=== PATIENT | male | born 1995 | race Caucasian/White ===

== ENCOUNTER → 2018-01-17 16:11 | Outpatient (CLI) | payer MEDICAID, SELFPAY ==
--- NOTE | 2018-01-17 15:59 | DI.REPORT_ITS ---
SYMPTOM/DIAGNOSIS: RT KNEE PAIN, S/P FALL. M25.561 RIGHT KNEE: Comparison is made with 01 Apr 2012. The joint spaces are well maintained. No fracture or joint effusion is seen. IMPRESSION: Negative right knee.
== END ==
PROVIDERS: PCP Family Medicine; Visit Provider Nurse Practitioner Family
DX: M25.561 Pain in right knee (principal)
CPT/HCPCS: 73562

== ENCOUNTER → 2018-01-23 01:05 | Outpatient (CLI) | payer MEDICAID, SELFPAY ==
--- NOTE | 2018-01-23 10:58 | DI.REPORT_ITS ---
SYMPTOMS/DIAGNOSIS: RT KNEE PAIN, S/P FALL, UNABLE TO AMBULATE, ? LIGAMENT OR MENISCUS TEAR, ACUTE PAIN, M25.561 RIGHT KNEE MRI: MRI examination of the knee was performed according to the usual protocol. There are subtle areas of abnormal signal most clearly seen on sagittal proton density imaging in the subchondral portions of the left patella and femur adjacent to the patellofemoral joint raising the possibility of bony trabecular injury. Question abnormal signal seen in subchondral bone in medial tibial plateau as well could also represent minimal bony trabecular injury seen on PD imaging but not confirmed on T 2 fat sat imaging. There is some abnormal signal in the medial meniscus body and posterior horn without a discrete surfacing tear. The lateral meniscus appears intact. The cruciate ligaments appear intact. No significant collateral ligament injury seen. CONCLUSION: Findings suggesting bony trabecular injuries of the patella and femur at the patellofemoral joint. No internal derangement seen.
== END ==
PROVIDERS: PCP Family Medicine; Visit Provider Nurse Practitioner Family
DX: M25.551 Pain in right hip (principal); M25.561 Pain in right knee; S89.81XA Other specified injuries of right lower leg, initial encounter
CPT/HCPCS: 73721; 73502

== ENCOUNTER → 2018-01-23 10:02 | Outpatient (CLI) | payer MEDICAID, SELFPAY ==
--- NOTE | 2018-01-23 09:57 | DI.REPORT_ITS ---
SYMPTOM/DIAGNOSIS: PAIN RIGHT HIP : 01/23 Two views were obtained. No bony or soft tissue abnormality seen.
== END ==
PROVIDERS: PCP Family Medicine; Visit Provider Orthopaedic Surgery
DX: M25.551 Pain in right hip (principal)
CPT/HCPCS: 73502

== ENCOUNTER 2018-03-10 07:56 | Outpatient (CLI) | payer MEDICAID, SELFPAY ==
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
== END 2018-03-10 08:16 ==
PROVIDERS: PCP Family Medicine; Visit Provider Orthopaedic Surgery
DX: M25.561 Pain in right knee (principal); M23.91 Unspecified internal derangement of right knee; Z01.818 Encounter for other preprocedural examination
CPT/HCPCS: NC

== ENCOUNTER 2018-03-12 11:05 | Day surgery (SDC) | payer MEDICAID, SELFPAY ==
[2018-03-12] VITALS (9 sets, daily range): BP systolic 120–137; BP diastolic 58–88; PULSE 63–77; RESP 11–20; TEMP 36.5–36.9; O2SAT 97–100
[2018-03-12] MEDS: Lactated Ringers 1,000 ML 80 ML IV ×3 (12:25→14:58)
--- NOTE | 2018-03-12 14:20 | PDOC.DSDIS_ITS ---
Discharge Plan Disposition Patient Disposition: HOME Condition: Good Discharge Details Reason For Visit: INTERNAL DERANGEMENT (R) KNEE Attending Provider: Arnulfo Mendez Primary Care Provider: Manuel Isaac Home Meds and New Rx's Prescriptions: New ibuprofen [IBU] 800 mg tablet 800 mg PO TID Qty: 60 RF: 0 oxycodone-acetaminophen [Percocet] 5-325 mg tablet 1 tab PO Q6H PRN (Reason: pain) Qty: 20 RF: 0 Discontinued ibuprofen 800 mg tablet 800 mg PO QID PRNRF: 0 tramadol 50 mg tablet 50 mg PO BID PRNRF: 0 Discharge Instructions Additional Instructions: Elevate R knee on 1-2 pillows as much as possible for next 48 hours. Crutches to walk. Put as much weight on R foot as your discomfort allows. Discontinue crutches when you can step fully on R foot with minimal pain and limp. Apply cryocuff to R knee 4 times/day for 1 hour each time. May remove dressings, shower, and get incisions wet after 48 hours. Leave incisions uncovered when they are dry and sealed. Outpatient physical therapy on Saturday or Sat for rehab R knee post arthroscopic limited synovectomy. Ibuprofen 3 times/day for swelling and inflammation. Take oxycodone for breakthrough pain every 6 hours, if needed. Follow up in 's office in 2 weeks. Referrals: Arnulfo Mendez MD [ [facility] STAFF PHYSICIAN] - (Follow up in 2 weeks.) Gerson Douglas, PT [PHYSICAL THERAPIST] - (start 03/14/18 or 03/17/18 for rehab R knee post-arthroscopic limited synovectomy.) Equipment/Supplies: Partial Weight Bearing Crutches Activity:: Activity as Tolerated Remove Dressings/Wound Care:: 48 hours Shower/Bathe:: 48 hours Diet:: As Tolerated Discharge Orders Discharge Orders: Discharge Order (Routine); Ordered 03/12/18 Ordered By: Arnulfo Mendez DS: Diagnosis Discharge Diagnosis (1) Internal derangement of knee: Start date: 03/12/18 Start time: 14:19 Status: Deleted (2) Internal derangement of right knee: Start date: 03/12/18 Start time: 14:19 Status: Acute
[2018-03-12] MEDS: fentaNYL 100 MCG/2 ML VIAL IVP ×2 (14:28→14:35)
[2018-03-12] MEDS: Normal Saline Flush 10 ML SYR IV (14:53)
[2018-03-12] MEDS: HYDROmorphone 2 MG/ML VIAL IVP ×3 (14:53→15:14)
[2018-03-12] MEDS: oxyCODONE-CR 10 MG TABCR PO (15:46)
[2018-03-12] MEDS: Acetaminophen 325 MG TAB 650 MG PO (15:46)
--- NOTE | 2018-03-14 09:28 | ROE_ITS ---
REPORT OF OPERATIVE PROCEDURE DATE OF PROCEDURE March 12, 2018 PREOPERATIVE DIAGNOSIS Internal derangement right knee. POSTOPERATIVE DIAGNOSES Internal derangement right knee due to medial patellar plica and chondromalacia patella. PROCEDURE Arthroscopy right knee with limited synovectomy (resection of plica) and limited chondroplasty theresa mesa ANESTHESIA General. SURGEON Arnulfo Mendez M.D. INDICATIONS This is a 22-year-old white male with continued pain and intermittent swelling of his right knee. He has had no major trauma to this knee. He has not responded to conservative treatment. MRI scan was ob tained, which was nondiagnostic. Because of persistence of symptoms that interfere with his work acti vities, and just walking, I felt that arthroscopy was indicated. This would hopefully provide a diagn osis and direct further treatment. The patient wished to have the procedure as soon as possible. The risks and complications of the procedure were explained to the patient in detail preop. PROCEDURE The patient was taken to the Operating Room on 03/12/2018. He was placed supine on the operating tab le and a general anesthetic was administered. The right thigh was placed in the arthroscopic leg hol karlie. The right knee was prepped and draped free in the usual sterile fashion. Arthroscopic portals were established. The right knee was inflated with normal saline solution using the arthroscopy pump and then routine arthroscopic examination proceeded. Intraoperative photographs were obtained to do cument the findings. Upon entering the medial compartment, he was found to have an intact medial meniscus. The medial meni scus was probed under direct vision and was fully stable. No occult tears were identified. The articu lar surface and the medial compartment was undamaged. The intercondylar notch showed intact anterior and posterior cruciate ligaments without injury. The lateral compartment showed normal lateral meniscus. The lateral meniscus was probed under direct vision and was fully stable. The popliteus tendon was visualized and was undamaged. The articular car tilage in the lateral compartment was undamaged and pristine. The lateral gutter was clear. The hawkins lofemoral joints with normal patellar tracking, but there were a couple of areas of grade 2 chondroma lacia and maybe even grade 3, one over the medial facet and one area over the lateral facet. Loose ar ticular cartilage was debrided using the 90-degree high radiofrequency electrocautery wand. The medial gutter could not be visualized very well because of a prominent medial patellar plica with overlying synovitis. The plica was excised using the 90-degree ArthroCare wand restoring the restori ng the full volume in the medial gutter with no impingement on the medial femoral condyle. At this po int, the knee was copiously irrigated with saline solution until the outflow was clear. All instruments were removed the knee. I instilled into the knee 20 cc of 0.5% Marcaine with epinephr ine solution, along with 4 mg of morphine for postoperative analgesia. The arthroscopy portals were i nfiltrated with 0.5% Marcaine with epinephrine solution and were approximated with interrupted 4-0 Ny victor manuel sutures. Sterile dressings were applied, followed by light compressive dressing to the right knee . The patient's anesthesia was reversed without complications. Blood loss was minimal and the patien t was discharged to Recovery Room in good condition. The patient was discharged home from the Day Surgery Unit when fully recovered from his general anest hesia. He was given instructions to try to elevate his right knee on 2 to 3 pillows as much as possib le for the next 48 hours. He is to keep his dressing clean and dry for 48 hours. After 48 hours, he may remove his dressing, shower and get his incisions wet. He is to use crutches to walk, weightbeari ng as tolerated to the right leg. He may discontinue the crutches when he can step fully on his right leg with minimal pain. Again, he may remove his dressings, shower and get his incisions wet after 48 hours. He is given a prescription for inflammation of ibuprofen 800 mg p.o. t.i.d. and a prescription for br eakthrough pain of Percocet 5/325 1 tablet every 6 hours as needed. He will begin outpatient physical therapy on either 03/14 or 03/17/18 for rehab of his right knee post arthroscopy with limited synove ctomy. He will followup in my office in two weeks.
== END 2018-03-12 16:38 | disposition home or self-care (01) ==
PROVIDERS: PCP Family Medicine; Visit Provider Orthopaedic Surgery
PROC: (CPT 29870; principal; 2018-03-12 13:00)
DX: M67.51 Plica syndrome, right knee (principal); M22.41 Chondromalacia patellae, right knee; M23.91 Unspecified internal derangement of right knee
CPT/HCPCS: 29877; E0114; J0690; J1885; J2250; J2405; J3010

== ENCOUNTER 2019-02-12 07:22 | Emergency (ER) | payer OTHER, MEDICAID, SELFPAY ==
[2019-02-12 07:26] VITALS: BP 151/82; PULSE 84; RESP 16; TEMP 36.5; O2SAT 98
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
[2019-02-12 08:51] VITALS: BP 124/77; PULSE 69; RESP 15; TEMP 37.1; O2SAT 99
[2019-02-12 09:43] VITALS: BP 124/77; PULSE 69; RESP 15; TEMP 37.1; O2SAT 99
== END 2019-02-12 09:22 | disposition short-term general hospital (02) ==
PROVIDERS: Emergency Provider Physician Assistant; PCP Family Medicine
DX: S05.91XA Unspecified injury of right eye and orbit, initial encounter (principal); W31.1XXA Contact with metalworking machines, initial encounter
CPT/HCPCS: 99285; 99284

== ENCOUNTER 2020-11-04 14:08 | Outpatient (CLI) | payer MEDICAID, SELFPAY ==
--- NOTE | 2020-11-04 08:45 | DI.RAD_ITS ---
Exam(s) XR CERVICAL SPINE COMP 4-5V EXAM: XR CERVICAL SPINE COMP 4-5V CLINICAL HISTORY: neck pain x 1yr with stiffness M54.2 CERVICALGIA TECHNIQUE: COMPARISON: No exams were available for comparison FINDINGS: Five views were obtained. The intervertebral disc spaces are well maintained. Alignment appears wit hin normal limits. Bones appear intact. There is plate and screw fixation of an old right clavicula r fracture. Oblique views show unremarkable appearance of the neural foramina. IMPRESSION: Negative radiographic examination of the cervical spine. RADIATION DOSE DELIVERED: Total DLP
== END 2020-11-04 14:28 ==
PROVIDERS: PCP Family Medicine; Visit Provider Nurse Practitioner Family
DX: M54.2 Cervicalgia (principal)
CPT/HCPCS: 72050

== ENCOUNTER 2020-11-10 05:51 | Emergency (ER) | payer MEDICAID, SELFPAY ==
[2020-11-10 05:55] VITALS: BP 132/93; PULSE 107; RESP 18; TEMP 36.6; O2SAT 97
--- NOTE | 2020-11-10 06:08 | W.ED.GENAD ---
Discharge Plan Disposition Patient Disposition: HOME Condition: Improving Discharge Details Clinical Impression: Cephalalgia Primary Care Provider: Maunel Isaac ED Provider: Arnulfo Roberson Home Meds and New Rx's Prescriptions: Continued lidocaine 4 % adhesive patch,medicated 1 patch topical DAILY PRN (Reason: pain) Qty: 30 RF: 1 cyclobenzaprine 10 mg tablet 10 mg PO HS PRN (Reason: muscle spasm) Qty: 90 RF: 1 sumatriptan succinate 50 mg tablet 50 mg PO Q2H PRN (Reason: migraine headache) Qty: 60 RF: 0 Discharge Instructions Instructions: General Headache (ED) Additional Instructions: Home to rest today. Continue to hydrate with small, frequent sips of fluids. You will benefit from sleeping in a dark, quiet room. May use Tylenol if needed for pain. Continue your prescribed medications. Return if you develop a fever, recurrent headache, or any other acute concerns. Stand Alone Forms: Work Release Medical Decision Making <Sami Pace DO - Last Filed: 11/10/20 07:43> This is a 25-year-old male with a past medical history of previous right eye injury, ADHD, tonsillectomy and adenoidectomy, family history of migraines, who presents today for headache. Patient states that the first time he ever had a headache was when he had a drill bit lodged in his right eye. That was 2 years ago. Since then he has occasional intermittent very mild headaches, however this past week he has developed a notable headache. Patient states that about a week ago he had a mild onset of a headache which she describes as a pressure-like sensation in his head. This is increased over the last week in severity and now described as severe pressure in his head that radiates to the right eye and then down his neck and back. He is sweaty throughout the day. Yesterday he states that he had a fever of 100.0, but otherwise had not had any fever. He has been notably sweaty over the last 3 days. He denies any falls or trauma. He did have an episode of notable lightheadedness yesterday and normal is passed out. He denies any chest pain, tearing or ripping sensation in his chest, chest heaviness, pleuritic chest pain, numbness or weakness. He does admit to intermittent tingling in his middle finger on his right hand. He denies any new medications. He did take NSAIDs as well as sumatriptan, neither of which helped his headache. The patient denies any headache red flags of worst headache of life, thunderclap headache, concerning family history of polycystic kidney disease, Marfan syndrome, Nicolas-Danlos syndrome, abdominal aortic aneurysm, aortic dissection, or intracranial aneurysm. Patient denies any saddle anesthesia, numbness or tingling in the groin, change in sensation when wiping. Patient denies any change in sexual function, bowel or bladder incontinence, leakage, or retention. Patient denies any weakness in the lower extremities, atypical falls or imbalance. No other complaints this time. He denies any IV or illicit drug use. Physical exam demonstrates no focal neurologic deficits. The patient is diffusely sweaty. He does have mild neck pain, but notable spasm throughout the cervical thoracic and lumbar spine. No midline tenderness. David-Pen reveals normal ocular pressure bilaterally. No pupillary defect. Differential is broad, mother is at bedside and states that this is similar to her headache/migraines. This may certainly be a migraine headache I do feel that the differential is broad at the neck, we will get a CT scan of the head as well as a CTA of the head neck to rule out aneurysm. Symptoms appear somewhat inconsistent with aneurysmal bleed, may also appear somewhat inconsistent with meningitis as he has had it for the last week, he is afebrile here, his symptoms seem to be more global. However these things are certainly of concern. We will start with a CT scan and give a migraine cocktail, then dependent upon repeat clinical assessment may require lumbar puncture. Will monitor closely and reassess. 7:[address] results, laboratory work-up is returned reassuring however CRP is high. On reassessment just now the patient looks markedly improved. His headache is gone from a 10 to a 2, he states he feels much better. All of his sweating is stopped. He feels very well compared to before. This is certainly reassuring reassessment. Patient will be signed out to my colleague Dr. Arnulfo Roberson for further evaluation repeat assessment after CT imaging. <Arnulfo Roberson MD - Last Filed: 11/10/20 08:36> Received signout from Dr. Pace. Please see his note regarding initial details of the case. Patient CT imaging unremarkable without evidence of occlusion, bleed, mass. Please see formal report. Patient able to sleep, his headache rapidly diminished. We did discuss need/indication for LP which he will defer at this time. He will be discharged home with his mother. Understands indications to seek return evaluation. HPI <Sami Pace, - Last Filed: 11/10/20 07:43> General Date/Time Provider Initiated Documentation: 11/10/20 05:52. HPI Narrative: This is a 25-year-old male with a past medical history of previous right eye injury, ADHD, tonsillectomy and adenoidectomy, family history of migraines, who presents today for headache. Patient states that the first time he ever had a headache was when he had a drill bit lodged in his right eye. That was 2 years ago. Since then he has occasional intermittent very mild headaches, however this past week he has developed a notable headache. Patient states that about a week ago he had a mild onset of a headache which she describes as a pressure-like sensation in his head. This is increased over the last week in severity and now described as severe pressure in his head that radiates to the right eye and then down his neck and back. He is sweaty throughout the day. Yesterday he states that he had a fever of 100.0, but otherwise had not had any fever. He has been notably sweaty over the last 3 days. He denies any falls or trauma. He did have an episode of notable lightheadedness yesterday and normal is passed out. He denies any chest pain, tearing or ripping sensation in his chest, chest heaviness, pleuritic chest pain, numbness or weakness. He does admit to intermittent tingling in his middle finger on his right hand. He denies any new medications. He did take NSAIDs as well as sumatriptan, neither of which helped his headache. The patient denies any headache red flags of worst headache of life, thunderclap headache, concerning family history of polycystic kidney disease, Marfan syndrome, Nicolas-Danlos syndrome, abdominal aortic aneurysm, aortic dissection, or intracranial aneurysm. Patient denies any saddle anesthesia, numbness or tingling in the groin, change in sensation when wiping. Patient denies any change in sexual function, bowel or bladder incontinence, leakage, or retention. Patient denies any weakness in the lower extremities, atypical falls or imbalance. No other complaints this time. He denies any IV or illicit drug use. Related Data Home Medications Medication Instructions Recorded Confirmed cyclobenzaprine 10 mg tablet 10 mg PO HS PRN #90 tab 11/03/20 11/03/20 lidocaine 4 % topical patch 1 patch TOPICAL DAILY PRN #30 ea 11/03/20 11/03/20 sumatriptan succinate 50 mg tablet 50 mg PO Q2H PRN #60 tab 11/09/20 11/10/20 Previous Rx's Medication Instructions Recorded cyclobenzaprine 10 mg tablet 10 mg PO HS PRN #90 tab 11/03/20 lidocaine 4 % topical patch 1 patch TOPICAL DAILY PRN #30 ea 11/03/20 sumatriptan succinate 50 mg tablet 50 mg PO Q2H PRN #60 tab 11/09/20 Allergies Allergy/AdvReac Type Severity Reaction Status Date / Time Penicillins Allergy Severe Anaphylaxsis, Verified 04/25/20 15:42 hives quetiapine fumarate Allergy Intermediate rash Verified 04/25/20 15:42 [From Seroquel] General Stated Complaint: Headache SMITH: 3 Review of Systems <Sami Pace DO - Last Filed: 11/10/20 07:43> All systems reviewed & are unremarkable except as noted in HPI and below PFSH <Sami Pace DO - Last Filed: 11/10/20 07:43> Medical History ADHD (attention deficit hyperactivity disorder) Allergic rhinitis (11/19/11) Depression History of ADHD Internal derangement of right knee Laceration of right conjunctiva Pharyngitis (06/17/12) PTSD (post-traumatic stress disorder) Surgical History Mandible fracture Reports suffered fracture of mandible when he was in third grade; describes having external hardware for fracture that was placed at [facility] Myringotomy w/ PE (pressure equalizing) tubes (01/27/02) Right clavicle fracture Treated surgically by Dr. Mendez Tonsillectomy and adenoidectomy (01/27/02) Tooth extraction REMOVAL OF EXTRA TEETH Family History MATERNAL HISTORY Migraine Alcohol abuse Personal history of malignant neoplasm OVARIAN - maternal grandmother Mental disorder DEPRESSION/ANXIETY PATERNAL UNCLE Seizure disorder Asthma Mother Migraine Mental disorder depression Father No problems noted. Sister No problems noted. Brother No problems noted. Brother No problems noted. Brother No problems noted. Brother No problems noted. Social History Smoking/Tobacco Use Status: Current every day Tobacco Type: cigarettes Smoking packs per day: 0.3 Smoking cigarettes per day: 6.0 Years smoked: 7 Smoking pack-years: 2.10 Smoking risk assessment performed?: Yes Alcohol Intake: current Alcohol Intake frequency: a few times a week Drug use: Current Sobriety Substance use type: other Details: Reports history of snorting cocaine, last cocaine use was >4 years ago Do you feel safe at home: Yes Do you feel safe in your relationship?: Yes Exam <Sami Pace DO - Last Filed: 11/10/20 07:43> Narrative Exam Narrative: 1.Const: Well-nourished, Well-developed, appearing stated age 2.Eyes: PERRL, no conjunctival injection, and symmetrical lids. All planes of vision are intact, however the patient does have worsening of his headache when he looks towards the right. The patient's ocular pressure is 15 in both eyes as noted on David-Pen. 3.ENT: Atraumatic external nose and ears. Moist MM. Neck: Symmetric, trachea midline, No thyromegaly. No evidence of otitis media. Mild tenderness on palpation of the posterior occipital and nuchal region. No neck stiffness though. Full range of motion is present for the neck. 4.CVS: +S1/S2, No murmurs or gallops. Peripheral pulses 2+ and equal in all extremities. Brisk capillary refill in all extremities. 5.RESP: Unlabored respiratory effort. Clear to auscultation bilaterally. No wheezes rales or rhonchi 6.GI: Soft, Nontender/Nondistended, No hepatosplenomegaly. No guarding or rebound. 7.MSK: Normocephalic/Atraumatic, Extremities w/o deformity or ttp No cyanosis or clubbing, Normal movement of all extremities. No midline cervical thoracic or lumbar spine tenderness. Mild to notable paraspinal spasms and tenderness throughout the cervical thoracic and lumbar spine. 8.Skin: Warm, Dry. No rashes or lesions. Diffusely sweaty. 9.Neuro: profile saw operator II-XII grossly intact. Sensation grossly intact, no focal neurologic deficits. All 6 cardinal planes of vision are fully intact. No evidence of rotatory or vertical nystagmus. The patient demonstrated a normal [id number], good dexterity. There was no evidence of dysdiadochokinesia. Patient was able to ambulate without difficulty. There was no wide-based gait. Romberg testing was normal. Yvhg-jb-[id number] testing was normal. Sensation was intact bilaterally as well as muscle strength bilaterally for all extremities. Patient was able to verbalize butter cup with no slurring, or miss pronunciation. 10.Psych: (AAO) x3. Appropriate mood and affect Course <Sami Pace DO - Last Filed: 11/10/20 07:43> Vital Signs Vital signs: Vital Signs Temperature 36.6 C 11/10/20 05:55 Pulse 107 H 11/10/20 05:55 Respiratory Rate 18 11/10/20 05:55 Blood Pressure 132/93 H 11/10/20 05:55 Pulse Oximetry 97 11/10/20 05:55 Temperature 36.6 C 11/10/20 05:55 Temperature Source Temporal Artery Scan 11/10/20 05:55 Pulse 107 H 11/10/20 05:55 Respiratory Rate 18 11/10/20 05:55 Respiratory Effort Non-Labored 11/10/20 05:58 Blood Pressure 132/93 H 11/10/20 05:55 Blood Pressure Position Sitting 11/10/20 05:55 Pulse Oximetry 97 11/10/20 05:55 Oxygen Delivery Method Room Air 11/10/20 05:55 Oxygen Flow Rate 0 11/10/20 05:55 Sign Out <Sami Pace DO - Last Filed: 11/10/20 07:43> Sign Out Data: Sign Out Comment: Headache, pending CT CTA reads, potential need for lumbar puncture after reassessment. Last updated by Sami Pace DO at 11/10/20 07:35
[2020-11-10] MEDS: ACETAMINOPHEN 1,000 MG/100 ML BTL 400 MG IVPB (06:27)
[2020-11-10] MEDS: Normal Saline 1,000 ML 1000 ML IV (06:27)
[2020-11-10] MEDS: diphenhydrAMINE 50 MG/ML VIAL 25 MG IVP (06:28)
[2020-11-10] MEDS: methylPREDNISolone SUCC 125 MG VIAL IVP (06:28)
[2020-11-10] MEDS: Prochlorperazine 10 MG/2 ML VIAL IVP (06:28)
[2020-11-10 06:34] LABS: Abs Immature Grans 0.05 10^3/uL (0.0-0.06); Absolute Basophil Count 0.06 10^3/uL (0.0-0.2); Absolute Eosinophil Count 0.15 10^3/uL (0.0-0.7); Absolute Lymphocyte Count 3.14 10^3/uL (1.2-3.4); Absolute Monocyte Count 0.75 10^3/uL (0.1-0.8); Absolute Neutrophil Count 4.87 10^3/uL (1.2-6.7); Basophils % 0.7; Eosinophils % 1.7; HCT 45.2 % (40.0-50.0); HGB 15.8 g/dL (13.5-17.5); Immature Grans % 0.6; Lactate 0.7 mmol/L (0.6-1.4); Lymphocytes % 34.8; MCH 30.6 pg (27.0-33.0); MCV 87.4 fL (80-95); MPV 10.8 fL (8.0-11.0); Monocytes % 8.3; Neutrophils % 53.9; Nucleated RBC 0 %; Platelet Count 178 10^3/uL (130-400); RBC 5.17 10^6/uL (4.36-5.78); RDW 12.8 % (11.8-14.1); WBC 9.02 10^3/uL (4.4-10.8)
[2020-11-10 06:51] LABS: ALT 68 U/L (16-63); AST 31 U/L (15-37); Albumin 3.8 g/dL (3.4-5.0); Alkaline Phosphatase 112 U/L (46-116); Anion Gap 10.7 mmol/L (3-11); BUN 17 mg/dL (7-18); Bilirubin, Total 0.8 mg/dL (0.2-1.0); CO2 24.3 mmol/L (21.0-32.0); CREATININE 1.1 mg/dL (0.70-1.30); Calcium 8.5 mg/dL (8.5-10.1); Chloride 103 mmol/L (98-107); Glucose 108 mg/dL (74-106); Potassium 3.9 mmol/L (3.5-5.1); Sodium 138 mmol/L (136-145); Total Protein 7.7 g/dL (6.4-8.2)
[2020-11-10] MEDS: Omnipaque 350 MG/ML 100 ML BTL IJ (07:27)
[2020-11-10] MEDS: Normal Saline - Diluent 50 ML VIAL IV (07:27)
[2020-11-10] MEDS: Normal Saline Flush 10 ML SYR IVP (07:28)
--- NOTE | 2020-11-10 07:30 | DI.CT_ITS ---
Exam(s) CT BRAIN NECK CTA EXAM: CT BRAIN NECK CTA CLINICAL HISTORY: severe headache, r/o mass/anyurism/bleed. TECHNIQUE: Imaging Protocol: Axial CT angiography was performed with multi-slice acquisition and mu lti-planar and/or 3D reconstructions. CONTRAST MATERIAL: Intravenous: Omnipaque 350 Contrast volume:structured data in ml COMPARISON: No exams were available for comparison FINDINGS: CT Head W/O and W contrast: Ventricles and Extra axial spaces: Normal in size and morphology for the patient's age. Hemorrhage: None. Cerebral parenchyma: Normal. Midline shift: None. Brainstem/Cerebellum: Normal. Calvarium: Normal. Visualized Paranasal sinuses/Mastoids: Mucous retention floors of both maxillary sinuses. Soft Tissues: Unremarkable. Enhancement: Normal. CTA Brain W: Internal Carotid Arteries: Petrous: Normal. Cavernous: Normal. Cerebral: Normal. Middle Cerebral Arteries: Right: No aneurysm, occlusion or significant stenosis. Left: No aneurysm, occlusion or significant stenosis. Anterior Cerebral Arteries: Right: No aneurysm, occlusion or significant stenosis. Left: No aneurysm, occlusion or significant stenosis. Posterior cerebral Arteries: Right: No aneurysm, occlusion or significant stenosis. Left: No aneurysm, occlusion or significant stenosis. Vertebral Arteries: Right: No aneurysm, occlusion or significant stenosis. Left: No aneurysm, occlusion or significant stenosis. Basilar Artery: No aneurysm, occlusion or significant stenosis. CTA Neck W: Common Carotid: Right: No aneurysm, occlusion or significant stenosis. Left: No aneurysm, occlusion or significant stenosis. External Carotid: Right: No aneurysm, occlusion or significant stenosis. Left: No aneurysm, occlusion or significant stenosis. Internal Carotid: Right: No aneurysm, occlusion or significant stenosis. Left: No aneurysm, occlusion or significant stenosis. Vertebral Artery: Right: No aneurysm, occlusion or significant stenosis. Left: No aneurysm, occlusion or significant stenosis. Lung Apices: Normal. Bones: Fixation plate right clavicle. Soft Tissues: Normal. IMPRESSION: 1. Normal CTA examination of the [place]. 2. Unremarkable CT Head. 3. Normal CTA examination of the neck. RADIATION DOSE DELIVERED: 2,285.46mGy.cm Total DLP 2,285.46mGy.cm Total DLP 2,285.46mGy.cm Total DLP DATA REPOSITORY: All CT scans at this facility are submitted to the National Radiology Data Registry (NRDR) Dose Index Registry (DIR) with the [employer] ([employer]). RADIATION OPTIMIZATION: All CT scans at this facility use at least one of these dose optimization te chniques: automated exposure control; mA and/or kV adjustment per patient size (includes targeted exa ms where dose is matched to clinical indication); or iterative reconstruction.
[2020-11-10 07:37] LABS: ESR 11 mm/hr (0-15)
--- NOTE | 2020-11-10 07:38 | DI.VRAD_ITS ---
PROCEDURE INFORMATION: Exam: CT Angiography Head With Contrast, Arteriography Exam date and time: 11/10/2020 6:10 AM Age: 25 years old Clinical indication: Other: Severe headache, R/O mass/aneurysm TECHNIQUE: Imaging protocol: Computed tomography angiography of the head with contrast. Exam focused on the arteries. 3D rendering (Not supervised by radiologist): MIP and/or 3D reconstructed images were created by the technologist. Radiation optimization: All CT scans at this facility use at least one of these dose optimization techniques: automated exposure control; mA and/or kV adjustment per patient size (includes targeted exams where dose is matched to clinical indication); or iterative reconstruction. Contrast material: OMNIPAQUE 350; Contrast volume: 85 ml; Contrast route: INTRAVENOUS (IV); COMPARISON: No relevant prior studies available. FINDINGS: ANTERIOR CIRCULATION: Right internal carotid artery: Unremarkable. Intracranial segment is patent with no significant stenosis. No aneurysm. Right middle cerebral artery: Unremarkable. No occlusion or significant stenosis. No aneurysm. Right anterior cerebral artery: Unremarkable. No occlusion or significant stenosis. No aneurysm. Left internal carotid artery: Unremarkable. Intracranial segment is patent with no significant stenosis. No aneurysm. Left middle cerebral artery: Unremarkable. No occlusion or significant stenosis. No aneurysm. Left anterior cerebral artery: Unremarkable. No occlusion or significant stenosis. No aneurysm. POSTERIOR CIRCULATION: Right vertebral artery: Unremarkable. No occlusion or significant stenosis. No aneurysm. Left vertebral artery: Unremarkable. No occlusion or significant stenosis. No aneurysm. Basilar artery: Unremarkable. No occlusion or significant stenosis. No aneurysm. Right posterior cerebral artery: Unremarkable. No occlusion or significant stenosis. No aneurysm. Left posterior cerebral artery: Unremarkable. No occlusion or significant stenosis. No aneurysm. Brain: No definite mass, mass effect, or midline shift. Cerebral ventricles: No ventriculomegaly. Bones/joints: Unremarkable. No acute fracture. Soft tissues: Unremarkable. IMPRESSION: No large vessel stenosis or occlusion. No mass lesion, obvious vascular malformation, or aneurysm PROCEDURE INFORMATION: Exam: CT Angiography Neck With Contrast Exam date and time: 11/10/2020 6:10 AM Age: 25 years old Clinical indication: Other: Severe headache, R/O mass/aneurysm TECHNIQUE: Imaging protocol: Computed tomography angiography of the neck with contrast. 3D rendering (Not supervised by radiologist): MIP and/or 3D reconstructed images were created by the technologist. Radiation optimization: All CT scans at this facility use at least one of these dose optimization techniques: automated exposure control; mA and/or kV adjustment per patient size (includes targeted exams where dose is matched to clinical indication); or iterative reconstruction. Contrast material: OMNIPAQUE 350; Contrast route: INTRAVENOUS (IV); COMPARISON: No relevant prior studies available. FINDINGS: Right common carotid artery: No stenosis. No dissection or occlusion. Right internal carotid artery: No stenosis of the extracranial segment. No dissection or occlusion. Right external carotid artery: No occlusion or stenosis of the origin. Left common carotid artery: No stenosis. No dissection or occlusion. Left internal carotid artery: No stenosis of the extracranial segment. No dissection or occlusion. Left external carotid artery: No occlusion or stenosis of the origin. Right vertebral artery: No stenosis. No dissection or occlusion. Left vertebral artery: No stenosis. No dissection or occlusion. Soft tissues: Normal. No significant soft tissue swelling. Bones/joints: No acute fracture. IMPRESSION: No stenosis or occlusion. REFERENCES: NASCET CRITERIA. The degree of internal carotid artery stenosis is based on NASCET criteria. Normal is no stenosis. Mild is less than 50% stenosis. Moderate is 50-69% stenosis. Severe is 70% to 99% stenosis. Total occlusion is no detectable patent lumen. Dictated and Authenticated by: Jeff Chou MD. Ordering:MYCHAL Gallardo MD
[2020-11-10 08:31] VITALS: BP 121/70; PULSE 85; RESP 18; O2SAT 96
[2020-11-10 08:50] VITALS: BP 120/72; PULSE 89; TEMP 36.7; O2SAT 98
== END 2020-11-10 08:52 | disposition home or self-care (01) ==
PROVIDERS: Student in an Organized Health Care Education/Training Program; Emergency Provider Emergency Medicine; PCP Family Medicine
DX: R51.9 Headache, unspecified (principal)
CPT/HCPCS: 36415; 70496; 70498; 80053; 85652; 87040; 96361; 96365; 96375; 99285; 83605; 85025; 86140; 99284; J0131; J0780; J1200; J2930; J3490

== ENCOUNTER 2021-09-01 16:43 | Emergency (ER) | payer MEDICAID, SELFPAY ==
[2021-09-01 16:46] VITALS: BP 124/86; PULSE 88; RESP 16; TEMP 36.7; O2SAT 97
--- NOTE | 2021-09-01 17:00 | DI.RAD_ITS ---
Exam(s) XR HAND LT COMPLETE EXAM: XR HAND LT COMPLETE CLINICAL HISTORY: 5th finger injury. TECHNIQUE: 2D digital imaging was performed. COMPARISON: No exams were available for comparison FINDINGS: 3 views No evidence of fracture nor dislocation. No osseous lesions. Bone density normal. No erosions. No radiopaque foreign body. IMPRESSION: No significant findings. DATA REPOSITORY: RADIATION DOSE DELIVERED:
--- NOTE | 2021-09-01 17:15 | ED.GENADUL_ITS ---
Discharge Plan Disposition Patient Disposition: HOME Condition: Stable Discharge Details Clinical Impression: Mallet deformity of little finger Primary Care Provider: Manuel Isaac ED Provider: Sam Cole Home Meds and New Rx's Prescriptions: Continued lidocaine 4 % adhesive patch,medicated 1 patch topical DAILY PRN (Reason: pain) Qty: 30 1RF Rx Instructions: Apply patch to most painful area, may leave on for up to 12 hrs cyclobenzaprine 10 mg tablet 10 mg PO HS PRN (Reason: muscle spasm) Qty: 90 1RF Rx Instructions: Take 1 tablet at bedtime topiramate [Topamax] 25 mg tablet 50 mg PO DAILY 0RF Rx Instructions: Take 1 tablet daily for 7 days then increase to 2 tablets daily for another week then increase to 3 tabs daily sumatriptan succinate 50 mg tablet 50 mg PO Q2H PRN (Reason: migraine headache) Qty: 60 0RF Rx Instructions: Take 1 tab at onset of headache; if no relief x 1 after 2hrs Discharge Instructions Instructions: Tendon Rupture (ED) Additional Instructions: It would appear as though you have an extensor tendon rupture. Wear splint with your finger and slight hyperextension until reevaluation with orthopedics. Rest, elevate, cool compresses every 2 hours for 20 minutes. [id number] Tylenol and/or Motrin as directed for discomfort. I have placed you on the orthopedic list, please contact their office tomorrow to set up outpatient reevaluation. Please watch for new or worsening symptoms and return to the ER for any concerns. Referrals: Bernard James MD [ [facility] STAFF PHYSICIAN] - Discharge Data Discharge Date/Time-TO BE ENTERED AT DEPARTURE: 09/01/21 17:58 Medical Decision Making 25-year-old gentleman, [id number], presents for left fifth finger injury he sustained while slipping his hand into a glove. Reports inability to extend his finger. No other injury. Denies numbness, tingling, weakness. Injury is consistent with a mallet finger, will obtain x-ray to rule out bony abnormality or dislocation. X-ray unremarkable. Case was discussed with Dr. Lopes who personally saw the patient, please see his note. X-ray unremarkable We will place the patient into a slight hyperextension finger splint, placed on the orthopedic list to help expedite outpatient care. Standard discharge and return precautions were provided. This documentation was generated using [employer] dictation system, please disregard any oddities of phrase or misspellings. Medical Records Medical records reviewed: Yes I reviewed the patient's medical records. Imaging Data Radiologic Study: Attestation: I personally reviewed and interpreted this imaging study as follows: Imaging: X-Ray Radiologist's impression: PROCEDURE INFORMATION: Exam: XR Left Hand Exam date and time: 09/01/2021 5:16 PM Age: 25 years old Clinical indication: Injury or trauma; Other: Unknown; Blunt trauma (contusions or hematomas); Left; Little finger TECHNIQUE: Imaging protocol: XR Left hand. Views: 3 or more views. COMPARISON: No relevant prior studies available. FINDINGS: Bones/joints: Normal. Soft tissues: Normal. IMPRESSION: No acute findings. Date: 09/01/21 Time: 17:42 Note: Patient seen, examined, and discussed with ANGUS Cole. I agree with treatment plan as discussed/documented. Suspect distal left fifth digit extensor tendon tear. Plan for splinting and timely outpatient follow-up with orthopedics. HPI General Mode of arrival: ambulatory . Date/Time Provider Initiated Documentation: 09/01/21 17:00 . Limitations to Documentation: no limitations . Information obtained by: patient . History of Present Illness 25 year old M presents to the emergency department with the chief complaint of L 5th finger injury, described as moderate, with intensity rated at 5. Quality is described as aching, and is localized to the left and upper extremity. Angus morrison reports no radiation. Patient started experiencing this hour(s) (2) and it has been constant. improves with No relieving factors improve symptom(s), Movement worsens symptoms . Patient notes no other symptoms.. Patient did receive the following treatments prior to arrival, none Related Data Home Medications Medication Instructions Recorded Confirmed cyclobenzaprine 10 mg tablet 10 mg PO HS PRN #90 tab 11/03/20 12/21/20 lidocaine 4 % topical patch 1 patch TOPICAL DAILY PRN #30 ea 11/03/20 12/21/20 sumatriptan succinate 50 mg tablet 50 mg PO Q2H PRN #60 tab 11/09/20 09/01/21 topiramate 25 mg tablet (Topamax) 50 mg PO DAILY tab 12/21/20 Previous Rx's Medication Instructions Recorded cyclobenzaprine 10 mg tablet 10 mg PO HS PRN #90 tab 11/03/20 lidocaine 4 % topical patch 1 patch TOPICAL DAILY PRN #30 ea 11/03/20 sumatriptan succinate 50 mg tablet 50 mg PO Q2H PRN #60 tab 11/09/20 Allergies Allergy/AdvReac Type Severity Reaction Status Date / Time Penicillins Allergy Severe Anaphylaxsis, Verified 09/01/21 16:55 hives quetiapine fumarate Allergy Intermediate rash Verified 09/01/21 16:55 [From Seroquel] General Stated Complaint: Orthopedic SMITH: 4 Review of Systems Constitutional Constitutional: Denies weakness Musculoskeletal Musculoskeletal: Reports deformity, Reports arthralgias, Denies numbness, Reports stiffness and Denies tingling Integumentary/Breasts Skin/Breast: Denies erythema Neurologic Neurologic: Denies numbness, Denies tingling and Denies weakness PFSH All Active Problems (Updated 09/01/21 @ 17:41 by ANGUS Diaz) Mallet deformity of little finger (Acute) Headache (Acute) PTSD (post-traumatic stress disorder) (Acute) Tinea corporis (Acute) Allergic conjunctivitis (Acute 11/19/11) History of myringotomy (Acute) Other dental procedure status (Acute) Status post tonsillectomy and adenoidectomy (Acute) Viral infection (Acute 06/19/12) Internal derangement of right knee (Acute) Pharyngitis (Acute 06/17/12) Allergic rhinitis (Acute 11/19/11) ADHD (attention deficit hyperactivity disorder) (Acute) Medical History Depression History of ADHD Surgical History Mandible fracture Reports suffered fracture of mandible when he was in third grade; describes having external hardware for fracture that was placed at [facility] Myringotomy w/ PE (pressure equalizing) tubes (01/27/02) Right clavicle fracture Treated surgically by Dr. Mendez Tonsillectomy and adenoidectomy (01/27/02) Tooth extraction REMOVAL OF EXTRA TEETH Family History MATERNAL HISTORY Migraine Alcohol abuse Personal history of malignant neoplasm OVARIAN - maternal grandmother Mental disorder DEPRESSION/ANXIETY PATERNAL UNCLE Seizure disorder Asthma Mother Migraine Mental disorder depression Father No problems noted. Sister No problems noted. Brother No problems noted. Brother No problems noted. Brother No problems noted. Brother No problems noted. Social History Smoking/Tobacco Use Status: Current every day Tobacco Type: cigarettes Smoking packs per day: 0.3 Smoking cigarettes per day: 6.0 Years smoked: 7 Smoking pack- years: 2.10 Smoking risk assessment performed?: Yes Alcohol Intake: current Alcohol Intake frequency: a few times a week Drug use: Current Sobriety Substance use type: other Details: Reports history of snorting cocaine, last cocaine use was >4 years ago Do you feel safe at home: Yes Do you feel safe in your relationship?: Yes Exam Const General: cooperative, healthy appearing, comfortable and no acute distress Orientation: alert and awake HENMT Head: normal to inspection, normocephalic and atraumatic Eyes Conjunctivae: conjunctivae normal Neck Neck: normal visual inspection, trachea midline and supple Resp Effort & Inspection: normal respiratory effort and able to speak in complete sentences Cardio Rate: regular rate Rhythm: regular rhythm Skin General skin exam: no rashes or lesions noted Neuro General: patient alert, patient awake, moves all extremities and no focal motor deficits Cognition: normal cognition Speech: speech normal Gait: normal gait Sensory Exam: no sensory deficits noted Extrem General: capillary refill normal Hand/finger images: 1. Diffuse mild discomfort without any obvious deformity, swelling, ecchymosis or erythema. Normal capillary refill. Normal sensation. Full range of motion of the MCP and the PIP joint. Patient unable to extend at the DIP, full flexion. Consistent with mallet finger Psych Appearance: grossly normal Mental Status: mental status grossly normal Course Vital Signs Vital signs: Vital Signs Temperature 36.7 C 09/01/21 16:46 Pulse 88 09/01/21 16:46 Respiratory Rate 16 09/01/21 16:46 Blood Pressure 124/86 09/01/21 16:46 Pulse Oximetry 97 09/01/21 16:46 Temperature 36.7 C 09/01/21 16:46 Temperature Source Skin 09/01/21 16:46 Pulse 88 09/01/21 16:46 Respiratory Rate 16 09/01/21 16:46 Respiratory Effort 09/01/21 16:56 Blood Pressure 124/86 09/01/21 16:46 Blood Pressure Position Sitting 09/01/21 16:46 Pulse Oximetry 97 09/01/21 16:46 Oxygen Delivery Method Room Air 09/01/21 16:46 Oxygen Flow Rate 0 09/01/21 16:46 Pain Level 3 09/01/21 16:46 Comment 09/01/21 16:46 PAWSS Have you Been Recently Intoxicated or Drunk Within the Last 30 days?: No Have you Ever Experienced Previous Episodes of Alcohol Withdrawal?: No Have you ever Experienced Withdrawal Seizures?: No Have you ever Experienced Delirium Tremens(DT)s?: No Have you ever undergone Alcohol Rehabilitation Treatment (i.e, inpt ot outpatient treatment programs)?: No Have you ever Experienced Blackouts?: No Have you ever Combined Alcohol with other Downers within the last 90 days?: No Have you ever Combined Alcohol with any other Substance of Abuse during the last 90 days?: No Positive Blood Alcohol level on Presentation? [PCS.BAL]: No Evidence of Increased Autonomic Activity (i.e. HR>120, tremor, sweating, agitation, nausea)?: No Result: 0
--- NOTE | 2021-09-01 17:55 | DI.VRAD_ITS ---
PROCEDURE INFORMATION: Exam: XR Left Hand Exam date and time: 09/01/2021 5:16 PM Age: 25 years old Clinical indication: Injury or trauma; Other: Unknown; Blunt trauma (contusions or hematomas); Left; Little finger TECHNIQUE: Imaging protocol: XR Left hand. Views: 3 or more views. COMPARISON: No relevant prior studies available. FINDINGS: Bones/joints: Normal. Soft tissues: Normal. IMPRESSION: No acute findings. Dictated and Authenticated by: Star Byrd MD. Ordering:HERMILA Vargas MD
== END 2021-09-01 17:58 | disposition home or self-care (01) ==
PROVIDERS: Emergency Provider Physician Assistant; PCP Family Medicine
DX: M20.012 Mallet finger of left finger(s) (principal); X50.0XXA Overexertion from strenuous movement or load, initial encounter
CPT/HCPCS: 99283; 73130